=== PATIENT | female | born 1930 | race Hispanic/Latino ===

== ENCOUNTER 2017-10-06 14:24 | Day surgery (SDC) | payer OTHER, MEDICARE, BC ==
[2017-10-06] MEDS ORDERED: Midazolam 2 MG/2 ML VIAL ONE ×2 (14:40→14:52)
[2017-10-06] MEDS ORDERED: Iohexol 350mgl/ml 50 ML ONE (14:41)
[2017-10-06] MEDS ORDERED: Iodixanol 320 MG/ML 200 ML BOTTLE IV ONE (14:41)
[2017-10-06] MEDS ORDERED: Lidocaine 2% Inj (20ml) ONE (14:43)
[2017-10-06] MEDS ORDERED: Iodixanol 320 mg/ml 150 ml Bottle IV ONE (14:59)
[2017-10-06] MEDS ORDERED: Sodium Chloride 0.9% 1,000 ML IV SCH (15:45)
--- NOTE | 2017-10-06 20:41 | CARDCATH ---
PROCEDURE DATE: 10/06/2017 HISTORY: The patient is an 87-year-old woman who was transferred from [facility] because of elevated troponin and wall motion abnormalities. The patient suffers from hypertension, which is accelerated. The patient has a long history of smoking, stopped 10 years ago and likely has COPD. The right femoral artery was cannulated with a 6-Bruneian sheath. There were no complications. I performed moderate sedation, which included the presence of an independent trained observer that assisted in monitoring the patient's level of consciousness and physiologic status. After administration of Versed and fentanyl, my intra-service time was 15 minutes. The findings on catheterization revealed a left ventricle that was globally mildly hypokinetic with an estimated ejection fraction of 45%-50%. The coronary anatomy revealed the left main artery was unremarkable. LAD and diagonal vessels were free of significant disease. The circumflex artery and obtuse marginal branches were free of significant disease. The right coronary was a dominant vessel, which was found to be unremarkable. Abdominal aorta revealed an infrarenal aneurysm. Manual compression was used to close the femoral artery site. The patient tolerated the procedure well. In summary, the procedure revealed unremarkable coronary arteries. Mild global LV hypokinesis with an EF of approximately 45%. Infrarenal abdominal aortic aneurysm. Given these findings, we will obtain a V/Q scan to rule out pulmonary embolism as an explanation for elevated troponin. In addition, we will have interventional radiology evaluate her for stent graft of her abdominal aneurysm. Carlos Lawler MD
--- NOTE | 2017-10-06 22:18 | CP.PCM.HP ---
<Ranjana Garcia - Last Filed: 10/06/17 22:43> History of Present Illness - History of Present Illness History of Present Illness: Ranjana Garcia, PGY1, H&P for Dr Delgado: CC: lightheadedness, generalized weakness, cardiac cath 87 year old female with PMH HTN, HLD, DM, presents to [facility] for cardiac cath today. Pt previously went to [facility] for lightheadedness and generalized weakness, was found to have NSTEMI and was transferred to [facility] for left cardiac cath with Dr Lawler. She underwent the procedure today, and reports no stent placement ( awaiting full report). Denies cp, sob, headache, pleurisy, hemoptysis, fever, chills, abdominal pain, leg swelling, urinary symptoms. With elevated troponin, pt to undergo V/Q scan tomorrow as per Dr Lawler. 12 point ROS obtained and negative, except as per HPI. 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 Quit tobacco 25 years ago, previously 1/2 ppdx25 years. Occasional ETOH. denies illicit drug use. Home Meds: see [facility] PCP: Meghan Present on Admission - Present on Admission Any Indicators Present on Admission: No History of DVT/PE: No History of Uncontrolled Diabetes: No Urinary Catheter: No Decubitus Ulcer Present: No Review of Systems - Review of Systems All systems: reviewed and no additional remarkable complaints except Review of Systems: as per HPI Past Patient History - Past Medical History & Family History Past Medical History?: Yes - Past Social History Smoking Status: Never Smoked - CARDIAC Hx Cardiac Disorders: Yes Hx Hypercholesterolemia: Yes Hx Hypertension: Yes Other/Comment: Carotid stenosis - PULMONARY Hx Respiratory Disorders: No - NEUROLOGICAL Hx Neurological Disorder: No - HEENT Hx HEENT Problems: Yes Hx Cataracts: Yes - RENAL Hx Chronic Kidney Disease: No - ENDOCRINE/METABOLIC Hx Endocrine Disorders: Yes Hx Diabetes Mellitus Type 2: Yes - HEMATOLOGICAL/ONCOLOGICAL Hx Blood Disorders: No - INTEGUMENTARY Hx Dermatological Problems: No - MUSCULOSKELETAL/RHEUMATOLOGICAL Hx Musculoskeletal Disorders: No Hx Falls: No - GASTROINTESTINAL Hx Gastrointestinal Disorders: No - GENITOURINARY/GYNECOLOGICAL Hx Genitourinary Disorders: No - PSYCHIATRIC Hx Psychophysiologic Disorder: No Hx Substance Use: No - SURGICAL HISTORY Hx Surgeries: Yes Hx Cholecystectomy: Yes Hx Hysterectomy: Yes Other/Comment: Back surgery - ANESTHESIA Hx Anesthesia: Yes Hx Anesthesia Reactions: No Hx Malignant Hyperthermia: No Meds Allergies/Adverse Reactions: Allergies Allergy/AdvReac Type Severity Reaction Status Date / Time No Known Allergies Allergy Verified 10/05/17 19:16 Physical Exam - Constitutional Appears: Non-toxic, No Acute Distress - Head Exam Head Exam: ATRAUMATIC, NORMOCEPHALIC - Eye Exam Eye Exam: EOMI, PERRL. absent: Conjunctival injection, Nystagmus, Scleral icterus Pupil Exam: NORMAL ACCOMODATION, PERRL. absent: Fixed, Irregular, Unequal - ENT Exam ENT Exam: Mucous Membranes Moist - Neck Exam Neck exam: Positive for: Full Rom - Respiratory Exam Respiratory Exam: Clear to Auscultation Bilateral, NORMAL BREATHING PATTERN. absent: Accessory Muscle Use, Rhonchi, Wheezes, Respiratory Distress, Stridor - Cardiovascular Exam Cardiovascular Exam: RRR, +S1, +S2. absent: Tachycardia, Systolic Murmur - GI/Abdominal Exam GI & Abdominal Exam: Normal Bowel Sounds, Soft. absent: Distended, Firm, Guarding, Organomegaly, Rebound, Rigid, Tenderness - Extremities Exam Extremities exam: Positive for: normal inspection. Negative for: calf tenderness, pedal edema - Back Exam Back exam: NORMAL INSPECTION. absent: CVA tenderness (L), CVA tenderness (R) - Neurological Exam Neurological exam: Alert, Oriented x3 - Psychiatric Exam Psychiatric exam: Normal Affect, Normal Mood - Skin Skin Exam: Dry, Normal Color, Warm Additional comments: + right groin dressing in place, + right palpable femoral pulse, + right DP and post tibial pulse. Results - Vital Signs Recent Vital Signs: Last Vital Signs Temp 97.9 F 10/06/17 18:45 Pulse 74 10/06/17 19:45 Resp 18 10/06/17 19:45 BP 132/62 10/06/17 19:45 Pulse Ox Assessment & Plan - Assessment and Plan (Free Text) Assessment: 87 year old female with PMH HTN, HLD, DM, presents to [facility] for cardiac cath today , scheduled for V/Q scan tomorrow as per Dr Lawler: Elevated Troponin: - EKG HR 72 SR with 1st degree AV block. Anterior infarct. - Carotid Artery US: <50% stenosis of carotid arteries bilaterally. - Head CT neg for acute changes. Left mastoid effusion. - CXR: neg - Cardiac cath 10/06: awaiting results. - Dr Lawler on board. Will await recs. - Scheduled for V/Q scan tomorrow. If neg, can d/c as per Dr Lawler. - ECHO : EF =35-40%, mod to sever hypokinesia of the ant and septal wall - ASA, BB, plavix, lipitor Hx of HTN: - c/w home med metoprolol. - monitor Hx of HLD: - home med lipitor Hx of DM: - ISS - monitor PPX: Pepcid, Scds Diet: HHD Discussed with Dr Delgado. - Date & Time Date: 10/06/17 Time: 22:33 <Henrik Delgado - Last Filed: 10/06/17 23:46> Results - Vital Signs Recent Vital Signs: Last Vital Signs Temp 97.9 F 10/06/17 18:45 Pulse 82 10/06/17 22:00 Resp 18 10/06/17 21:45 BP 117/61 10/06/17 21:45 Pulse Ox - Labs Labs: Laboratory Results - last 24 hr 10/06/17 22:20 POC Glucose (mg/dL) 211 H Attending/Attestation - Attestation I have personally seen and examined this patient.: Yes I have fully participated in the care of the patient.: Yes I have reviewed all pertinent clinical information: Yes Notes (Text): 10/06/17 23:46 Patient was seen when she was in -. Agree with history, physical examination, assessment and plan.
[2017-10-07 05:43] VITALS: O2SAT 94
[2017-10-07] MEDS: Insulin Lispro (humaLOG) MEDIUM Coverage SC SCH ×2 (07:57→12:39)
[2017-10-07 08:06] LABS: HEMOGLOBIN 10.8 g/dL (12.0-16.0); MEAN CELL VOLUME 89.8 fl (80.0-105.0); MEAN CORPUSCULAR HEMOGLOBIN 29.8 pg (25.0-35.0); MEAN CORPUSCULAR HGB CONC 33.2 g/dl (31.0-37.0); MEAN PLATELET VOLUME 11.4 fl (7.0-11.0); RBC 3.62 10^6/uL (3.5-6.1); RED CELL DISTRIBUTION WIDTH 14.3 % (11.5-14.5)
[2017-10-07 08:30] LABS: ALB/GLOB RATIO 1.4 (1.1-1.8); ALBUMIN 3.5 g/dL (3.0-4.8); CALCIUM 8.7 mg/dL (8.4-10.5)
[2017-10-07] MEDS ORDERED: Metoprolol Succinate 50 mg XL Tab PO SCH (10:00)
[2017-10-07 10:38] VITALS: PULSE 72
[2017-10-07 12:48] VITALS: BP 110/72; RESP 18; TEMP 97.4
--- NOTE | 2017-10-07 13:12 | PN ---
DATE: 10/07/2017 CARDIOLOGY FOLLOWUP SUBJECTIVE: The patient is without symptoms. The patient underwent a V/Q scan this morning. PHYSICAL EXAMINATION: VITAL SIGNS: Blood pressure is 113/62 with the heart rates in the 70s. NECK: Negative JVD. LUNGS: Without rales. HEART: Reveals S1, S2. EXTREMITIES: Without edema. The right groin site is stable. LABORATORY DATA: The hemoglobin is 10.8. Chemistries: BUN and creatinine are unremarkable. IMPRESSION: 1. Status post [id number] myocardial infarction at [place]. 2. A catheterization reveals normal coronary arteries. 3. Mild cardiomyopathy with an ejection fraction of 45-50%. 4. Abdominal aortic aneurysm. PLAN: Given these findings, if the patient's V/Q scan is negative, the patient can be discharged. If negative, the elevated troponins do not have an explanation; however, there is no significant coronary disease. The incidental finding of the AAA has been referred to Dr. Chavez, who saw the patient as well as the family. They have scheduled to follow up with him for a CT scan in 3-4 weeks and for possible evaluation for stent grafting of the abdominal aneurysm. I have discussed these findings with Dr. Watson, her primary hook puller and they will follow up with Dr. Watson next week. Carlos Lawler MD
--- NOTE | 2017-10-07 13:49 | CP.PCM.DIS ---
<Genna Parrish - Last Filed: 10/07/17 13:59> Provider - Provider Attending physician: Michelle Nix MD Consults: Cardio: Dr. Lawler Time Spent in preparation of Discharge (in minutes): 35 Hospital Course - Lab Results Lab Results: Most Recent Lab Values WBC 10.0 10^3/ul (4.5-11.0) 10/07/17 07:00 RBC 3.62 10^6/uL (3.5-6.1) 10/07/17 07:00 Hgb 10.8 g/dL (12.0-16.0) L 10/07/17 07:00 Hct 32.5 % (36.0-48.0) L 10/07/17 07:00 MCV 89.8 fl (80.0-105.0) 10/07/17 07:00 MCH 29.8 pg (25.0-35.0) 10/07/17 07:00 MCHC 33.2 g/dl (31.0-37.0) 10/07/17 07:00 RDW 14.3 % (11.5-14.5) 10/07/17 07:00 Plt Count 294 10^3/uL (120.0-450.0) 10/07/17 07:00 MPV 11.4 fl (7.0-11.0) H 10/07/17 07:00 Sodium 137 mmol/L (132-148) 10/07/17 07:00 Potassium 4.2 mmol/L (3.6-5.0) 10/07/17 07:00 Chloride 103 mmol/L (98-107) 10/07/17 07:00 Carbon Dioxide 26 mmol/L (21-33) 10/07/17 07:00 Anion Gap 13 (10-20) 10/07/17 07:00 BUN 18 mg/dL (7-21) 10/07/17 07:00 Creatinine 1.1 mg/dl (0.7-1.2) 10/07/17 07:00 Est GFR ( Amer) 57 10/07/17 07:00 Est GFR (Non-Af Amer) 47 10/07/17 07:00 POC Glucose (mg/dL) 107 mg/dL (65-110) 10/07/17 11:36 Random Glucose 100 mg/dL (70-110) 10/07/17 07:00 Calcium 8.7 mg/dL (8.4-10.5) 10/07/17 07:00 Phosphorus 3.1 mg/dL (2.5-4.5) 10/07/17 07:00 Magnesium 1.9 mg/dL (1.7-2.2) 10/07/17 07:00 Total Bilirubin 0.6 mg/dL (0.2-1.3) 10/07/17 07:00 AST 51 U/L (14-36) H D 10/07/17 07:00 ALT 24 U/L (7-56) 10/07/17 07:00 Alkaline Phosphatase 56 U/L (38-126) 10/07/17 07:00 Total Protein 6.0 g/dL (5.8-8.3) 10/07/17 07:00 Albumin 3.5 g/dL (3.0-4.8) 10/07/17 07:00 Globulin 2.5 gm/dL 10/07/17 07:00 Albumin/Globulin Ratio 1.4 (1.1-1.8) 10/07/17 07:00 - Hospital Course Hospital Course: This is an 87yo female with past medical history of HTN, HLD, NIDDM who was transferred from [facility] to [facility] for cardiac cath. At [facility] patient was admitted for lightheadedness and weakness. Troponin was found to be positive possibly secondary to NSTEMI. She had a cardiac cath which showed normal coronaries and no stent was placed. Patient had a V/Q scan to rule out PE as the cause of the elevated troponin. V/Q preliminary read on [facility] showed no evidence of PE. Echo showed EF~35-40%, mod to severe hypokinesia of the anterior and septal wall. During the cath, patient was noted to have a AAA. Dr. Lawler, [facility], recommended patient follow up with IR, Dr. Chavez for further evaluation as outpatient. She will continue her home medications without any changes. Patient reports feeling well and denies chest pain, shortness of breath, weakness, nausea/vomiting/diarrhea, fever or chills, weakness or fatigue. I spoke with her and daughter who was at bedside they verbalized agreement with discharge plan. They will follow up with their PMD next week. She will also follow up with her outpatient fit model Dr. Ponce. - Date & Time of H&P Date of H&P: 10/06/17 Time of H&P: 15:00 Discharge Exam - Head Exam Head Exam: ATRAUMATIC, NORMOCEPHALIC - Eye Exam Eye Exam: Normal appearance, PERRL Pupil Exam: NORMAL ACCOMODATION, PERRL - ENT Exam ENT Exam: Mucous Membranes Moist - Respiratory Exam Respiratory Exam: Clear to PA & Lateral, NORMAL BREATHING PATTERN, UNREMARKABLE. absent: Rhonchi, Wheezes - Cardiovascular Exam Cardiovascular Exam: REGULAR RHYTHM, +S1, +S2. absent: Gallop, Rubs, Systolic Murmur - GI/Abdominal Exam GI & Abdominal Exam: Normal Bowel Sounds, Soft, Unremarkable. absent: Mass, Rebound, Rigid, Tenderness - Extremities Exam Extremities exam: normal inspection Additional comments: R femoral cath site clean and dry. No hematoma or bleeding noted. - Neurological Exam Neurological exam: Alert, CN II-XII Intact, Normal Gait, Oriented x3 - Psychiatric Exam Psychiatric exam: Normal Affect, Normal Mood - Skin Skin Exam: Dry, Normal Color, Warm Discharge Plan - Follow Up Plan Condition: GOOD Disposition: HOME/ ROUTINE Instructions: Abdominal Aortic Aneurysm, High Blood Pressure in Adults, Cardiac Catheterization Additional Instructions: 1. Continue home medications 2. Follow up with PMD. 3. Follow up with Dr. Chavez to evaluate Abdominal Aortic Aneurysm. Referrals: Carlos Chavez MD [Staff Provider] - Carlos Lawler MD [Family Provider] - Basilio Ponce MD [Medical Doctor] - <Michelle Nix - Last Filed: 10/07/17 16:52> Provider - Provider Attending physician: Michelle Nix MD Hospital Course - Lab Results Lab Results: Most Recent Lab Values WBC 10.0 10^3/ul (4.5-11.0) 10/07/17 07:00 RBC 3.62 10^6/uL (3.5-6.1) 10/07/17 07:00 Hgb 10.8 g/dL (12.0-16.0) L 10/07/17 07:00 Hct 32.5 % (36.0-48.0) L 10/07/17 07:00 MCV 89.8 fl (80.0-105.0) 10/07/17 07:00 MCH 29.8 pg (25.0-35.0) 10/07/17 07:00 MCHC 33.2 g/dl (31.0-37.0) 10/07/17 07:00 RDW 14.3 % (11.5-14.5) 10/07/17 07:00 Plt Count 294 10^3/uL (120.0-450.0) 10/07/17 07:00 MPV 11.4 fl (7.0-11.0) H 10/07/17 07:00 Sodium 137 mmol/L (132-148) 10/07/17 07:00 Potassium 4.2 mmol/L (3.6-5.0) 10/07/17 07:00 Chloride 103 mmol/L (98-107) 10/07/17 07:00 Carbon Dioxide 26 mmol/L (21-33) 10/07/17 07:00 Anion Gap 13 (10-20) 10/07/17 07:00 BUN 18 mg/dL (7-21) 10/07/17 07:00 Creatinine 1.1 mg/dl (0.7-1.2) 10/07/17 07:00 Est GFR ( Amer) 57 10/07/17 07:00 Est GFR (Non-Af Amer) 47 10/07/17 07:00 POC Glucose (mg/dL) 107 mg/dL (65-110) 10/07/17 11:36 Random Glucose 100 mg/dL (70-110) 10/07/17 07:00 Calcium 8.7 mg/dL (8.4-10.5) 10/07/17 07:00 Phosphorus 3.1 mg/dL (2.5-4.5) 10/07/17 07:00 Magnesium 1.9 mg/dL (1.7-2.2) 10/07/17 07:00 Total Bilirubin 0.6 mg/dL (0.2-1.3) 10/07/17 07:00 AST 51 U/L (14-36) H D 10/07/17 07:00 ALT 24 U/L (7-56) 10/07/17 07:00 Alkaline Phosphatase 56 U/L (38-126) 10/07/17 07:00 Total Protein 6.0 g/dL (5.8-8.3) 10/07/17 07:00 Albumin 3.5 g/dL (3.0-4.8) 10/07/17 07:00 Globulin 2.5 gm/dL 10/07/17 07:00 Albumin/Globulin Ratio 1.4 (1.1-1.8) 10/07/17 07:00 Attending/Attestation - Attestation I have personally seen and examined this patient.: Yes I have fully participated in the care of the patient.: Yes I have reviewed all pertinent clinical information, including history, physical exam and plan: Yes Notes (Text): 10/07/17 16:49 Attending note; Patient seen and examined with resident. Patient is a 87-year-old female transferred from [facility] yesterday for cardiac cath. Coronary arteries normal. Patient is clinically stable. Denies any chest pain, palpitation, shortness of breath. No hypoxia noted. VQ scan will is negative for pulmonary embolus. Case discussed with Dr. Lawler in detail . Patient will follow-up with fit model Dr. ponce. Patient also will follow-up with Dr. Carlos Chavez for aortic aneurysm. Patient will be discharged home today. 10/07/17 16:52
--- NOTE | 2017-10-09 10:47 | NM ---
COMPARISON: None TECHNIQUE: 33.0 mCi technetium 99-m DTPA aerosol. 4.0 mCI technetium 99-m MAA administered intravenously. FINDINGS: VENTILATION COMPONENT: Normal.Retention of radionuclide in the tracheobronchial tree and ingestion of radionuclide in the stomach, incidental findings PERFUSION COMPONENT: Normal. IMPRESSION: Normal ventilation perfusion scan for pulmonary embolism. Concordant results (preliminary interpretation) provided by [facility]. Procedure Completed: 11:41 Preliminary ([facility]) Report: Dictated and Authenticated: 13:23 Final Interpretation: 10:39 10/09/2017.
== END 2017-10-07 14:51 | disposition home or self-care (01) ==
LOC: CATH 14:24 → 2RNO 15:50 → CATH 10-07 14:51
PROVIDERS: ATTEND Internal Medicine
DX: I21.4 Non-ST elevation (NSTEMI) myocardial infarction (principal); I71.4 Abdominal aortic aneurysm, without rupture; E11.9 Type 2 diabetes mellitus without complications; E78.00 Pure hypercholesterolemia, unspecified; E78.5 Hyperlipidemia, unspecified; F32.89 Other specified depressive episodes; I10 Essential (primary) hypertension; I42.9 Cardiomyopathy, unspecified; I44.0 Atrioventricular block, first degree; I65.23 Occlusion and stenosis of bilateral carotid arteries; Z90.49 Acquired absence of other specified parts of digestive tract; Z90.710 Acquired absence of both cervix and uterus
CPT/HCPCS: 36415; 78582; 80053; 82948 ×2; 83735; 84100; 85027; 93458; 99152; C1769; C2629; J1644; J2250; J3010; J7030; J7040; Q9966